=== PATIENT | female | born 2000 | race Caucasian/White ===

== ENCOUNTER 2022-04-25 04:59 | Emergency (ER) | payer BC ==
[~2022-04-25] VITALS: Ht 162.6 cm; Wt 76.7 kg
--- NOTE | 2022-04-25 05:32 | NUR ---
Patient triaged and placed in ED RM 6. VSS and patient appears in no acute distress at this time. Accompanied by self. MD Paredes notified of need for MSE.
[2022-04-25 05:33] VITALS: BP_SYST 123
--- NOTE | 2022-04-25 05:35 | NUR ---
URINE TAKEN TO LAB
[2022-04-25 05:40] VITALS: BP_SYST 123
[2022-04-25 05:47] LABS: BILIRUBIN,URINE 1+ (NEGATIVE); CLARITY/URINE SL CLOUDY (CLEAR); COLOR,URINE YELLOW (YELLOW); GLUCOSE,URINE NEGATIVE (NEGATIVE); KETONES,URINE TRACE (NEGATIVE); LEUKOCYTE ESTERASE ,URINE NEGATIVE (NEGATIVE); NITRITE, URINE POSITIVE (NEGATIVE); PROTEIN URINE 1+ (NEGATIVE); UROBILINOGEN,URINE 0.2 (0.2-1.0)
--- NOTE | 2022-04-25 05:47 | NUR ---
PT BIB PARENTS FROM HOME WITH C/O OF ONGOING STOMACH ACHE AFTER BEING DIAGNOSED WITH THE FLU 2 WEEKS AGO. DENIES N/V/D.
[2022-04-25 05:54] LABS: BLOOD, URINE TRACE (NEGATIVE)
[2022-04-25 05:55] LABS: BACTERIA,URINE FEW /HPF (None Seen); WBC,URINE 0-3 /HPF (0-3)
[2022-04-25 05:56] LABS: MUCUS,URINE 1+ /LPF (None Seen); YEAST,URINE Few /HPF (None Seen)
[2022-04-25] MEDS ORDERED: NITR-85 PO (06:03)
--- NOTE | 2022-04-25 06:05 | NUR ---
Patient given written and verbal discharge instructions and verbalizes understanding. ER MD discussed with patient the results and treatment provided. Patient in stable condition. ID arm band removed. Rx of MACROBID given. Patient educated on pain management and to follow up with PMD. Pain Scale 2/10. Opportunity for questions provided and answered. Medication side effect fact sheet provided.
== END 2022-04-25 06:05 | disposition home or self-care (01) ==
LOC: SED 04:59
DX: N30.00 Acute cystitis without hematuria (principal); R10.30 Lower abdominal pain, unspecified; Z79.899 Other long term (current) drug therapy
CPT/HCPCS: 81000; 81025; 87086; 99283